=== PATIENT | female | born 1965 ===

== ENCOUNTER 2022-08-19 06:00 | Outpatient (RCR) | payer BC, SELFPAY | END 2022-09-09 23:59 | disposition home or self-care (01) | LOC: TOT 06:00 | PROVIDERS: Visit Provider Orthopaedic Surgery | DX: Z98.890 Other specified postprocedural states (principal); Z48.89 Encounter for other specified surgical aftercare | CPT/HCPCS: 97003; 97110; 97140; 97530 ==